=== PATIENT | female | born 1990 | race Hispanic/Latino ===

== ENCOUNTER 2024-12-30 20:17 | Emergency (ER) | payer SELFPAY ==
[~2024-12-30] VITALS: Ht 154.9 cm; Wt 69.9 kg
[2024-12-30 20:43] LABS: BASOPHILS # (AUTO) 0.04 K/uL (0.00-0.20); BASOPHILS % (AUTO) 0.3 % (0.0-5.0); EOSINOPHILS # (AUTO) 0.09 K/uL (0.00-0.70); EOSINOPHILS % (AUTO) 0.6 % (0.0-8.0); HEMATOCRIT 30.4 % (36-48); IMMATURE GRANULOCYTE ABSOLUTE 0.07 K/uL (0-1); LYMPHOCYTES % (AUTO) 6.7 % (21.0-51.0); MEAN CORPUSCULAR HEMOGLOBIN 21.8 pg (27.0-33.0); MEAN CORPUSCULAR HGB CONC 30.3 g/dL (32.0-36.0); MONOCYTES # (AUTO) 0.7 K/uL (0.1-1.0); MONOCYTES % (AUTO) 5.2 % (3.0-13.0); NEUTROPHILS # (AUTO) 12.3 K/uL (1.8-7.7); NEUTROPHILS % (AUTO) 86.7 % (40.0-77.0); PLATELET COUNT (AUTO) 215 K/uL (130-400); RED BLOOD CELL COUNT(AUTO) 4.22 MIL/uL (4.00-5.50); WHITE BLOOD COUNT (AUTO) 14.2 K/uL (4.8-10.8)
[2024-12-30 20:49] LABS: CREATININE 0.5 mg/dL (0.5-1.0); POTASSIUM 3.6 mmol/L (3.5-5.1)
[2024-12-30 21:23] LABS: COVID19 (SARS ANTIGEN RAPID) PRESUMPTIVE NEGATIVE (NEGATIVE); INFLUENZA TYPE A Negative For Type A (NEGATIVE); INFLUENZA TYPE B Negative For Type B (NEGATIVE)
[2024-12-30 21:24] LABS: RAPID GROUP A STREP positive (NEGATIVE)
[2024-12-30] MEDS: LACTATED RINGERS 1000ML IV STA (21:26)
[2024-12-30] MEDS ORDERED: AMOX500C2 PO (21:36)
--- NOTE | 2024-12-30 21:39 | ERN ---
General Chief Complaint: Sore Throat Stated Complaint: FEVER, BODY ACHES, DIARRHEA, SORE THROAT Time Seen by MD: 20:18 Source: patient History of Present Illness Initial Comments Patient with fever body aches diarrhea sore throat for 48 hours. Comes in because she is feeling worse. Otherwise no complaints Allergies: Coded Allergies: No Known Drug Allergies (Unverified Allergy, Unknown, 12/30/24) Past Medical History Past Medical History: No Pertinent History Past Surgical History: BTL, Female( History) LMP: December 08, 2024 ROS Dictation Review of systems is otherwise negative no shortness of breath no chest pain no GI problems no pain or burning while urinating. Simply a sore Constitutional: (+) chills, (+) diaphoresis, (+) fever, (+) malaise, (+) weakness, (+) other documentation Physical Exam General Appearance: (+) mild distress Orientation: (+) alert, (+) oriented x 3 Head/Face Trauma: No Eye: bilateral eye normal inspection, bilateral eye PERRL, bilateral eye EOMI Ear, Nose, Throat: (+) hearing grossly normal, (+) normal ENT inspection Ear, Nose, Throat Comment Pharynx is red with Neck: (+) normal inspection, (+) supple Respiratory: (+) chest non-tender, (+) lungs clear Heart: (+) regular Vascular: (+) no edema, (+) normal peripheral pulse Gastrointestinal: (+) soft, (+) non-tender, (+) no organomegaly Results Laboratory and Microbiology Lab and Micro Result Laboratory Tests Test 12/30/24 20:36 12/30/24 20:56 White Blood Count 14.2 K/uL (4.8-10.8) H Red Blood Count 4.22 MIL/uL (4.00-5.50) Hemoglobin 9.2 g/dL (12.0-16.0) L Hematocrit 30.4 % (36-48) L Mean Corpuscular Volume 72.0 fL (79-99) L Mean Corpuscular Hemoglobin 21.8 pg (27.0-33.0) L Mean Corpuscular Hemoglobin Concent 30.3 g/dL (32.0-36.0) L Red Cell Distribution Width 17.0 % (11.0-15.5) H Platelet Count 215 K/uL (130-400) Mean Platelet Volume 11.2 fL (7.5-10.5) H Immature Granulocyte % (Auto) 0.5 % (0-1) Neutrophils (%) (Auto) 86.7 % (40.0-77.0) H Lymphocytes (%) (Auto) 6.7 % (21.0-51.0) L Monocytes (%) (Auto) 5.2 % (3.0-13.0) Eosinophils (%) (Auto) 0.6 % (0.0-8.0) Basophils (%) (Auto) 0.3 % (0.0-5.0) Neutrophils # (Auto) 12.3 K/uL (1.8-7.7) H Lymphocytes # (Auto) 1.0 K/uL (1.0-4.8) Monocytes # (Auto) 0.7 K/uL (0.1-1.0) Eosinophils # (Auto) 0.09 K/uL (0.00-0.70) Basophils # (Auto) 0.04 K/uL (0.00-0.20) Absolute Immature Granulocyte (auto 0.07 K/uL (0-1) Nucleated Red Blood Cells 0.0 % (0.0-0.19) White Cell Morphology Comment See comments Red Blood Cell Morphology See comments Sodium Level 137 mmol/L (136-145) Potassium Level 3.6 mmol/L (3.5-5.1) Chloride Level 104 mmol/L (101-111) Carbon Dioxide Level 28 mmol/L (21-32) Blood Urea Nitrogen 7 mg/dL (7-18) Creatinine 0.5 mg/dL (0.5-1.0) Glomerular Filtration Rate Calc 126 mL/min (>90) Random Glucose 148 mg/dL (70-105) H Total Calcium 8.7 mg/dL (8.5-10.1) Influenza Type A Antigen Negative For Type A Influenza Type B Antigen Negative For Type B SARS-CoV-2 Antigen (Rapid) PRESUMPTIVE NEGATIVE Group A Streptococcus Rapid positive (NEGATIVE) *A MDM Standard labs were written for and nasal swabs. Patient is positive for strep. CBC shows a mild elevation of her white cell count chemistry panel is normal. I will discharge her with a a prescription for amoxicillin. ED Course Orders Procedure Category Date Status Time Cbc With Differential LAB 12/30/24 Complete 20:19 Basic Metabolic Panel LAB 12/30/24 Complete 20:19 Influenza Type A & B, LAB 12/30/24 Complete Rapid 20:19 Rapid (Group A Strep) LAB 12/30/24 Complete 20:19 Urinalysis Profile LAB 12/30/24 Logged 20:19 Covid19 (Sars Antigen LAB 12/30/24 Complete Rapid) 20:19 Lactated Ringers PHA 12/30/24 Complete 1000ml (Lactated 20:19 Current Medications Medications (Trade) Dose Ordered Sig/[place] Route PRN Reason Start Time Stop Time Status Last Admin Dose Admin Lactated Ringer's (Lactated Ringers 1000ml) 1,000 ml BOLUS STAT IV 12/30/24 20:19 12/30/24 20:51 DC 12/30/24 21:26 Vital Signs Date Time Temp Pulse Resp B/P (MAP) Pulse Ox O2 Delivery O2 Flow Rate FiO2 12/30/24 21:05 99.0 92 18 103/66 99 Room Air* 0 21 12/30/24 20:43 98.8 100 18 102/63 98 Room Air 0 DX & DISP Disposition: Discharge Departure Impression: Primary Impression: Strep throat Condition: Stable Scripts Amoxicillin (Amoxicillin) 500 Mg Capsule 1 CAP PO BID for 10 Days, #20 CAP 0 Refills Prov: VIVIANA GUERIN MD 12/30/24 Additional Instructions: You have strep throat. I have sent a prescription for amoxicillin to the pharmacy. You should be feeling much better in a couple days and no longer infectious after 24 hours of taking the antibiotics. Please return to the emergency room if your symptoms do not improve with the in the week or if you start having worsening respiratory symptoms cough and phlegm. Referrals: SELF,REFERRAL (PCP) VIVIANA GUERIN MD Dec 30, 2024 21:39
[2024-12-30] MEDS: acetaMINOPHEN 650 MG/20.3 ML UDCUP PEG ONE (21:49)
[2024-12-30 21:50] VITALS: BP 105/68; PULSE 89; RESP 20; TEMP 99; O2SAT 99
[2024-12-30] MEDS ORDERED: AMOX-426 PO (21:58)
== END 2024-12-30 22:08 | disposition home or self-care (01) ==
LOC: EDH 20:17
DX: J02.0 Streptococcal pharyngitis (principal); Z98.51 Tubal ligation status; Z20.822 Contact with and (suspected) exposure to COVID-19
CPT/HCPCS: 36415; 80048; 85025; 87426; 87804; 87880; 99283